=== PATIENT | female | born 1985 | race Caucasian/White ===

== ENCOUNTER 2022-08-20 00:04 | Day surgery (SDC) | payer OTHER, SELFPAY ==
[2022-08-16 08:22] VITALS: BMI 21.8
--- NOTE | 2022-08-16 08:36 | PC.NURSE ---
Report to the Outpatient Waiting Room, entrance under the green pavilion located off [facility], at time 0730 on date 08/20/22. OR Time: 0930. Time changes happen often and if your time is changed the preop area will call you the afternoon before. - You and your visitor will be asked to self-screen and do not enter if you have any COVID symptoms. - Only one visitor and NO children visitors are allowed at this time. - The patient visitor is requested to leave or wait in car when not with patient due to restrictions. - A mask is required within the hospital. Patients may have clear liquids (water, carbonated beverages, clear teas, apple juice) until 3 hours prior to surgery with a maximum of 20 ounces. - No food from midnight until time of surgery Take the following medications with a SIP of water the morning of surgery: N/A Medications to discontinue per physician: VITAMINS Date to take last dose: 08/16/22 Please no make-up, nail armenian, hairspray, perfume, deodorant, or body powder the day of surgery. No jewelry (including any body piercings) or valuables the day of surgery, leave them at home. Please take a shower or bath the night before, or the morning of, surgery with an antibacterial soap. Wear comfortable, loose fitting clothing. - Jewelry must be removed prior to entering the operating room. Rings and piercings that are not removed may be cut off. - The hospital will not accept responsibility for valuables. - Please leave all valuables, including medications, at home the day of surgery. If you are going home after surgery, a licensed meals on wheels driver must drive you home. - NO public transportation without another adult. - We recommend that an adult stay with you for 24 hours following discharge. - We also recommend that you do not drive, make important decision, drink alcoholic beverages, or take any drugs that were not prescribed by your health care provider for at least 24 hours after your discharge time. Follow any additional instructions given to you from your surgeon. If you or anyone in your household have experienced Covid symptoms in the past week, please notify your surgeon or the nurse liaison at the phone number below for possible testing. Telephone instructions given to PT - JANAK BARRAZA and asked if any additional questions and then verbalized understanding. Patient advised to call surgeon office or pre surgery nurse liaison [phone] if any additional questions.
[2022-08-20] VITALS (8 sets, daily range): BP systolic 109–122; BP diastolic 63–76; PULSE 55–96; RESP 12–22; TEMP 36.2–36.7; O2SAT 98–100
[2022-08-20] MEDS: LACTATED RINGERS 1,000 ML 30 ML IV CONT ×2 (06:50→10:40)
--- NOTE | 2022-08-20 07:37 | WPDHPUPDATE1 ---
History and Physical Update Update Date/Time: 08/20/22 07:38 History and Physical has been reviewed, including an updated exam of the patient. There are NO changes in the patient's condition. Risks, benefits, and alternatives have been discussed and questions answered. Patient agrees to proceed with procedure.
--- NOTE | 2022-08-20 07:38 | PM.HPGS ---
History of Present Illness History of Present Illness Consent: Risks, benefits, and alternatives have been discussed and questions answered. Patient agrees to proceed with procedure. Chief complaint: Vol Sterilization Narrative: Ruchi Michelle is a 37 year old female who has completed her childbearing and requests permanent sterilization. Risks of procedure including infection, bleeding, injury to internal organs, and tubal failure with increased ectopic were reviewed. In addition the permanent irreversible nature of tubal ligation was reviewed. Patient voices understanding and agrees to proceed PMFSH Past Medical History Medical History (Updated 08/20/22 @ 07:40 by Nolvia Aldrich MD) Anxiety and depression (normal spontaneous vaginal delivery) Social History Social History (Updated 03/29/21 @ 14:13 by Norma Byrd CMA) Smoking packs per day: 0.75 Smoking cigarettes per day: 15.0 Years smoked: 21 Smoking pack-years: 15.75 Smoking status: Current every day smoker Tobacco type: cigarettes Alcohol intake: current Drinks per week: 20 Alcohol use details: BEER Substance use: current Substance use type: marijuana Living arrangements: with family Spiritual care concerns: No Meds Home Medications and Allergies Home Medications Medication Instructions Recorded Confirmed Type cholecalciferol (vitamin D3) 50 50 mcg PO HS 08/16/22 08/16/22 History mcg (2,000 unit) tablet (Vitamin D3) fluoxetine 10 mg capsule 10 mg PO HS 08/16/22 08/16/22 History fluoxetine 20 mg capsule 20 mg PO HS 08/16/22 08/16/22 History vitamin B complex 1 tablet PO HS 08/16/22 08/16/22 History Allergies Allergy/AdvReac Type Severity Reaction Status Date / Time No Known Allergies Allergy Unverified 08/16/22 08:20 Exam Const: General: healthy appearing and alert Orientation/consciousness: patient oriented x3 Resp: Effort & Inspection: normal respiratory effort GI: GI Palp: Yes Soft to palpation, No Tenderness to palpation present (GI) and No Palpable mass present : External Female Exam: normal external appearance Speculum Exam - Vagina: normal appearance of the vagina and normal vaginal discharge Speculum Exam - Cervix: normal appearance of the cervix Bimanual exam- vagina & uterus: uterine size normal and consistency normal Bimanual Exam- Adnexa, other: normal adnexae and No adnexal tenderness Neuro: General: patient oriented x3 Assessment and Plan Assessment and plan (1) Encounter for sterilization: Code(s): Z30.2 - Encounter for sterilization Status: Acute Assessment and Plan: Plan to proceed with laparoscopic bilateral tubal ligation with Falope rings
[2022-08-20] MEDS: ACETAMINOPHEN 500 MG TABLET 1000 MG PO (08:10)
[2022-08-20] MEDS: KETOROLAC 15 MG/ML VIAL (*BKC) IV PUSH (08:10)
--- NOTE | 2022-08-20 08:25 | P.PNAN_ITS ---
Anes - Initial Pre Proc Eval Procedure: Operation Date: 08/20/22 09:30 Proposed Procedures p Laparoscopic Bilateral Tubal Ligation with Fallopian Rings - Nolvia Aldrich MD Date/Time: 08/20/22 08:25 Surgeon: Nolvia Aldrich MD Pre Op Diagnosis: Vol Sterilization Patient Data Age: 37 Gender: F Height: 1.64 m Weight: 58.8 kg Last Vital Signs Temp 36.7 C 08/20/22 07:52 Pulse 72 08/20/22 07:52 Resp 16 08/20/22 07:52 BP 109/72 08/20/22 07:52 Pulse Ox 100 08/20/22 07:52 O2 Del Method Room Air 08/20/22 07:52 Allergies Allergy/AdvReac Type Severity Reaction Status Date / Time No Known Allergies Allergy Verified 08/20/22 07:45 Home Medications Medication Instructions Recorded Confirmed Type cholecalciferol (vitamin D3) 50 50 mcg PO HS 08/16/22 08/20/22 History mcg (2,000 unit) tablet (Vitamin D3) fluoxetine 10 mg capsule 10 mg PO HS 08/16/22 08/20/22 History fluoxetine 20 mg capsule 20 mg PO HS 08/16/22 08/20/22 History vitamin B complex 1 tablet PO HS 08/16/22 08/20/22 History Patient hx anesthesia problems: none Family hx anesthesia problems: none Results Review: All pre-operative results and documents have been reviewed as part of the pre- operative evaluation. [facility] Past Medical History Medical History Anxiety and depression Social History Social History Smoking packs per day: 0.75 Smoking cigarettes per day: 15.0 Years smoked: 21 Smoking pack-years: 15.75 Smoking status: Current every day smoker Tobacco type: cigarettes Alcohol intake: current Drinks per week: 20 Alcohol use details: BEER Substance use: current Substance use type: marijuana Living arrangements: with family Spiritual care concerns: No Anes - Eval Final PreProcedure Day of Procedure 08/20/22 08:25 Patient weight: normal Heart: regular rate and rhythm Lungs: decreased breath sounds Airway: Mallampati scale class II Neurological: alert and oriented Last oral intake: >/= 8 hours ASA classification: III Emergent: no Anesthetic plan: proceed Anesthesia type and monitoring: general ETT and standard monitoring Results Review: All pre-operative results and documents have been reviewed as part of the pre- operative evaluation. Informed Consent: The patient's anesthetic plan and its attendant risks and benefits were discussed with the patient/family/POA. Questions were solicited and answers provided to the satisfaction of the patient/family/POA.
[2022-08-20] MEDS: SCOPOLAMINE 1.5 MG PATCH TRANSDERM (08:40)
--- NOTE | 2022-08-20 10:31 | P.OP_ITS ---
Procedure Note - Detailed Date of Procedure 08/20/22 Pre-op Diagnosis Requests Sterilization Post-op Diagnosis Same Procedure Performed Laparoscopic bilateral tubal ligation Surgeon Nolvia Aldrich MD Anesthesia General Findings Mild bilateral hydrosalpinx. Small cyst on the left ovary. Normal-appearing r ight ovary and uterus. Description of Procedure The patient is taken to the operating room and placed under anesthesia in the dorsal lithotomy position. She was prepped and draped in usual sterile fashion. Bladder was drained with a red rubber catheter. Daniel speculum was placed in the vagina and the cervix grasped on the anterior lip with a tenaculum. The uterus is sounded to 8cm. The JIM manipulator was placed and all other instruments removed from the vagina. Attention is turned to the abdomen where a vertical skin incision was made with a scalpel. The abdomen is tented and the Veress needle placed. Opening patient pressure was 4mmHg. Water drop test normal. Pneumoperitoneum was obtained to a patient pressure of 15. The patient was placed in Trendelenburg and a horizontal skin incision was made 2cm above the symphysis pubis in the midline. The 8mm trocars placed under direct visualization. The blunt probe was used to bring the tubes into view. They were noted to be mildly hydrosalpinx. The right tube was grasped at the thinnest portion and a ring is applied without difficulty. A good loop of tube was within the ring. The patient became bradycardic and the pneumoperitoneum was reduced and patient taken out of Trendelenburg. Medications were given per Anesthesia and the bradycardia resolved. Pneumoperitoneum was again obtained and the patient placed in mild Trendelenburg. The left tube is grasped and as the ring is being applied the tube transected. The cautery is opened and using the Kleppinger the tube was cauterized in 4 separate sections. Two sections were above the split and 2 were below. Pneumoperitoneum was reduced and the instruments removed. Skin incisions were closed using 4-0 nylon in an interrupted fashion. Vaginal instruments are removed. Patient is awakened from anesthesia and taken to recovery in stable condition. Sponge, needle, and instrument counts are correct per the OR staff. Estimated Blood Loss 5 Drains No Packing No Pathology None sent Complications No immediate complications Condition Stable Disposition PACU
[2022-08-20] MEDS: fentaNYL CITRATE INJ (*CRX) 100 MCG/2 ML VIAL 25 MCG IV PUSH ×2 (11:09→11:15)
[2022-08-20] MEDS: oxyCODONE HCL (*CRX) 5 MG TAB IR PO (12:04)
== END 2022-08-20 12:52 | disposition home or self-care (01) ==
PROVIDERS: PCP Family Medicine; Visit Provider Obstetrics & Gynecology Gynecology
PROC: (CPT 58671; principal; 2022-08-20 09:30)
DX: Z30.2 Encounter for sterilization (principal); N70.11 Chronic salpingitis; N83.202 Unspecified ovarian cyst, left side; F41.8 Other specified anxiety disorders; F17.210 Nicotine dependence, cigarettes, uncomplicated; F12.90 Cannabis use, unspecified, uncomplicated
CPT/HCPCS: 58671; A4264; A9270; J0330; J0461; J1100; J1885; J2250; J2405; J2590; J2704; J3010; J7120

== ENCOUNTER 2024-01-22 12:29 | Emergency (ER) | payer OTHER, SELFPAY ==
[2024-01-22 12:37] VITALS: BP 107/74; PULSE 86; RESP 16; TEMP 36.9; O2SAT 100
--- NOTE | 2024-01-22 13:00 | ED.EXTPRO ---
HPI - Extremity Problem General Chief complaint: Extremity Problem,Nontraumatic Stated complaint: Bruised Ankle Time Seen by Provider: 01/22/24 13:00 Source: patient Mode of arrival: ambulatory Limitations: no limitations History of Present Illness HPI Narrative: 39 yo F presents with redness, swelling and pain to medial aspect of L ankle for 2 days. Getting progressively worse. Afebrile. Hit left ankle while moving to new home. Ambulatory with slight limp. All systems reviewed and negative except as noted above. Related Data Home Medications Medication Instructions Recorded Confirmed cholecalciferol (vitamin D3) 50 50 mcg PO HS 08/16/22 08/20/22 mcg (2,000 unit) tablet (Vitamin D3) fluoxetine 10 mg capsule 10 mg PO HS 08/16/22 08/20/22 fluoxetine 20 mg capsule 20 mg PO HS 08/16/22 08/20/22 vitamin B complex 1 tablet PO HS 08/16/22 08/20/22 Allergies Allergy/AdvReac Type Severity Reaction Status Date / Time No Known Allergies Allergy Verified 08/20/22 07:45 Review of Systems Review of Systems: CONSTITUTIONAL: Denies fever, chills, or sweats. EYES: Denies visual changes, redness, or discharge. ENT: Denies rhinorrhea, congestion, sore throat, or otalgia. CARDIOVASCULAR: Denies chest pain, palpitations, or edema. RESPIRATORY: Denies cough or dyspnea. GASTROINTESTINAL: Denies abdominal pain, nausea, vomiting, or diarrhea. GENITOURINARY: Denies dysuria or hematuria. SKIN: Denies rash or itching. Reports redness swelling and tenderness to left ankle. MUSCULOSKELETAL: Denies back pain, joint pain, or myalgia. NEUROLOGIC: Denies headache, numbness, or weakness. PSYCHIATRIC: Denies anxiety or depression. All other systems reviewed are negative, except as documented in HPI. [facility] Past Medical History Medical History Anxiety and depression Social History Social History Smoking packs per day: 0.75 Smoking cigarettes per day: 15.0 Years smoked: 21 Smoking pack-years: 15.75 Smoking status: Current every day smoker Tobacco type: cigarettes Alcohol intake: current Drinks per week: 20 Alcohol use details: BEER Substance use: current Substance use type: marijuana Living arrangements: with family Spiritual care concerns: No Exam Narrative: At time of signature, agree with nursing past medical, surgical, social and family history. There is no relevant family history pertinent to the presenting complaint. Const: Other: GENERAL: This is a well-nourished, well-developed patient, in no apparent distress. HEAD: normocephalic, atraumatic. EYES: PERRL. Sclera clear/white. Vision is grossly intact. EARS: External ears normal NOSE: External nose normal NECK: Neck supple, non-tender without lymphadenopathy, masses or thyromegaly. CARDIOVASCULAR: Regular rate and rhythm without murmurs, gallops, or rubs. RESPIRATORY: Clear to auscultation. Breath sounds equal bilaterally. No wheezes, rales, or rhonchi. SKIN: warm, Dry, intact with no suspicious lesions or rash, good texture and turgor. Erythema to medial aspect of left ankle approximately 6 x 3 cm. Warm and tender on palpation. No fluctuance. NEURO: awake, alert, and oriented to person, place and time. There were no obvious focal neurologic abnormalities. EXTREMITIES: No joint tenderness, effusion, or edema noted. Course Course Level of Care: Express Care Visit Vital Signs Vital signs: Vital Signs Temperature 36.9 C 01/22/24 12:37 Pulse Rate 86 01/22/24 12:37 Respiratory Rate 16 01/22/24 12:37 Blood Pressure 107/74 01/22/24 12:37 Pulse Oximetry 100 01/22/24 12:37 Temperature 36.9 C 01/22/24 12:37 Pulse Rate 86 01/22/24 12:37 Respiratory Rate 16 01/22/24 12:37 Blood Pressure 107/74 01/22/24 12:37 Pulse Oximetry 100 01/22/24 12:37 Reviewed MDM - Extremity (N
== END 2024-01-22 13:12 | disposition home or self-care (01) ==
PROVIDERS: Emergency Provider Nurse Practitioner Family; PCP Family Medicine
DX: L03.116 Cellulitis of left lower limb (principal); F17.210 Nicotine dependence, cigarettes, uncomplicated; F12.90 Cannabis use, unspecified, uncomplicated; F41.9 Anxiety disorder, unspecified; F32.A Depression, unspecified
CPT/HCPCS: 99213; G0463

== ENCOUNTER 2024-02-09 19:50 | Emergency (ER) | payer OTHER, SELFPAY ==
[2024-02-09 19:58] VITALS: BP 112/70; PULSE 104; RESP 18; TEMP 36.9; O2SAT 100
--- NOTE | 2024-02-09 20:23 | ED.WOUNDLAC ---
HPI - Wound/Laceration General Chief Complaint: Wound/Laceration Stated Complaint: Left Foot Wound Time Seen by Provider: 02/09/24 20:07 Source: patient, RN notes reviewed and old records reviewed Mode of arrival: ambulatory Limitations: no limitations History of Present Illness HPI narrative: Patient presents today complaining of left foot and ankle swelling and redness. She was seen at [facility] on 01/22/2024, diagnosed with cellulitis of her left leg and prescribed Keflex. She finished the antibiotic and states her symptoms had improved by 85%. Reports that symptoms worsened again yesterday morning to include intermittent pain, redness, swelling. She reports intermittent tingling in her feet and toes for the past couple of years, so this is not new. She currently rates her pain 7/10 when it is at its worst, and has been taking ibuprofen with some relief. She was supposed to follow-up with her PCP last week, but missed her appointment. She has a new appointment set up in 2 days. Related Data Home Medications Medication Instructions Recorded Confirmed cholecalciferol (vitamin D3) 50 50 mcg PO HS 08/16/22 08/20/22 mcg (2,000 unit) tablet (Vitamin D3) fluoxetine 10 mg capsule 10 mg PO HS 08/16/22 08/20/22 fluoxetine 20 mg capsule 20 mg PO HS 08/16/22 08/20/22 vitamin B complex 1 tablet PO HS 08/16/22 08/20/22 Allergies Allergy/AdvReac Type Severity Reaction Status Date / Time No Known Allergies Allergy Verified 02/09/24 20:02 Review of Systems Review of Systems: CONSTITUTIONAL: Denies body aches, fever, chills, or sweats. EYES: Denies visual changes, redness, or discharge. ENT: Denies rhinorrhea, congestion, sore throat, or otalgia. CARDIOVASCULAR: Denies chest pain, palpitations, or edema. RESPIRATORY: Denies cough or dyspnea. GASTROINTESTINAL: Denies abdominal pain, nausea, vomiting, or diarrhea. GENITOURINARY: Denies dysuria or hematuria. SKIN: Denies rash, itching, or wounds. MUSCULOSKELETAL: + left ankle and foot swelling, redness NEUROLOGIC: Denies headache, numbness, tingling, or weakness. PSYCH: Denies depression or anxiety. [facility] Past Medical History Medical History Anxiety and depression Social History Social History Smoking packs per day: 0.75 Smoking cigarettes per day: 15.0 Years smoked: 21 Smoking pack-years: 15.75 Smoking status: Current every day smoker Tobacco type: cigarettes Alcohol intake: current Drinks per week: 20 Alcohol use details: BEER Substance use: current Substance use type: marijuana Living arrangements: with family Spiritual care concerns: No Comments At time of signature, I have reviewed and agree with nursing past medical, surgical, social and family history unless otherwise noted. Please see nursing chart for further information. There is no relevant family history pertinent to the presenting complaint Exam Narrative: GENERAL: Well-appearing, well-nourished, and in no acute distress. HEAD: Normocephalic, atraumatic. EYES: EOMI. No redness or drainage. Conjunctivae normal. ENT: Mucous membranes pink and moist. NECK: Normal AROM. CHEST: No respiratory distress. EXTREMITIES: Left le+ nonpitting edema to the left foot and ankle accompanied by mild erythema of the foot and ankle. Tenderness to palpation chest proximal to the ankle. No tenderness to the calf. No erythema or swelling of the calf. Negative Homans. Distal sensation intact in all 5 toes. Capillary refill normal. Pedal pulse is strong. SKIN: Warm, dry, no rash. Capillary refill normal. Normal skin turgor. NEURO: No focal deficits. Alert and oriented x3. Gait steady. PSYCH: Normal affect. No signs of depression or anxiety. Course Course Level of Care: Express Care Visit Vital Signs Vital signs: Vital Signs Temperature 98
== END 2024-02-09 20:30 | disposition home or self-care (01) ==
PROVIDERS: Emergency Provider Nurse Practitioner; PCP Family Medicine
DX: L03.116 Cellulitis of left lower limb (principal); F17.210 Nicotine dependence, cigarettes, uncomplicated; F41.9 Anxiety disorder, unspecified; F32.A Depression, unspecified
CPT/HCPCS: 99213; G0463

== ENCOUNTER 2024-02-11 15:35 | Outpatient (CLI) | payer OTHER, SELFPAY ==
--- NOTE | ~2024-02-11 | US_ITS ---
US venous doppler [facility] DATE: 02/11/2024 16:12 INDICATION: Swelling of the left lower extremity TECHNIQUE: Real-time and color flow imaging and Doppler analysis of the veins of the left lower extre mity COMPARISON: None FINDINGS: The left greater saphenous vein is patent. There is spontaneous and phasic flow and normal augmentation and color flow signal and normal compression of the deep veins of the left lower extremi ty. IMPRESSION: No evidence of deep venous thrombosis of left leg Reviewed, dictated and finalized at [facility]. Reviewed, dictated and finalized at location [facility].
== END 2024-02-11 15:36 | disposition home or self-care (01) ==
LOC: ANHIMG 15:36
PROVIDERS: PCP Family Medicine; Visit Provider Family Medicine
DX: M79.89 Other specified soft tissue disorders (principal)
CPT/HCPCS: 93971

== ENCOUNTER 2024-03-02 13:08 | Outpatient (CLI) | payer OTHER, SELFPAY ==
--- NOTE | ~2024-03-02 | XR_ITS ---
Bilateral Hands Technique: Bilateral PA, oblique, and lateral views, and ball-catcher's view were obtained. Clinical History: Pain Findings: No acute fracture or dislocation is seen. Osseous alignment is anatomic. Joint spaces are p reserved. Soft tissues are unremarkable. Impression: Unremarkable bilateral hand radiographs. Reviewed, dictated and finalized at location . Impression: Unremarkable bilateral hand radiographs.
--- NOTE | ~2024-03-02 | XR_ITS ---
Left ankle Technique: AP, oblique, and lateral views were obtained. Clinical History: Pain Findings: No acute fracture or dislocation is seen. Osseous alignment is anatomic. Ankle mortise and other visualized joint spaces are preserved. Soft tissues are otherwise unremarkable. Impression: Unremarkable left ankle. Reviewed, dictated and finalized at location . Impression: Unremarkable left ankle.
== END 2024-03-02 13:09 | disposition home or self-care (01) ==
LOC: ANHIMG 13:09
PROVIDERS: PCP Family Medicine; Visit Provider Family Medicine
DX: M25.572 Pain in left ankle and joints of left foot (principal); M79.642 Pain in left hand; M79.641 Pain in right hand
CPT/HCPCS: 73130; 73610

== ENCOUNTER 2024-06-13 19:57 | Emergency (ER) | payer OTHER, SELFPAY ==
--- NOTE | 2024-06-13 20:08 | ED.FEMALEGU ---
HPI - Female Genitourinary General Chief complaint: Urogenital-Female Stated complaint: UTI Time Seen by Provider: 06/13/24 20:08 Source: patient, RN notes reviewed and old records reviewed Mode of arrival: ambulatory Limitations: no limitations History of Present Illness HPI Narrative: 39-year-old female presents to the [facility] with concerns for UTI. Patient reports having blood, urgency, burning and frequency with urination. Patient states that it started couple of days ago. Denies abdominal pain, did feel nauseous on Saturday, 3 days ago. No vomiting. Denies fevers. No CVA tenderness. Denies abdominal pain. Patient states that she believes that her significant other my of cheated on her. 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 Related Data Home Medications Medication Instructions Recorded Confirmed fluoxetine 10 mg capsule 10 mg PO HS 08/16/22 02/26/24 fluoxetine 20 mg capsule 20 mg PO HS 08/16/22 02/26/24 cholecalciferol (vitamin D3) 50 50 mcg PO HS 02/11/24 02/26/24 mcg (2,000 unit) tablet (Vitamin D3) Allergies Allergy/AdvReac Type Severity Reaction Status Date / Time No Known Allergies Allergy Verified 02/26/24 14:09 Review of Systems Review of Systems: All systems reviewed & are unremarkable except as noted in HPI and below Constitutional: Constitutional: Reports no additional constitutional complaints Eyes: Eyes: Reports no additional eye complaints ENT: Reports system reviewed and no additional complaints, except as documented Cardiovascular: Cardiovascular: Reports no additional cardiovascular complaints, Denies chest pain and Denies dyspnea Respiratory: Respiratory: Reports no additional respiratory complaints, Denies chest congestion, Denies cough and Denies dyspnea Gastrointestinal: Gastrointestinal: Reports no additional gastrointestinal complaints, Denies abdominal pain, Denies nausea and Denies vomiting Genitourinary: Genitourinary: Reports as per HPI Musculoskeletal: Musculoskeletal: Reports no additional musculoskeletal complaints Integumentary/Breasts: Skin/Breast: Reports system reviewed and no additional complaints, except as docu Neurologic: Reports system reviewed and no additional complaints, except as documented Psychiatric: Psychiatric: Reports no additional psychiatric complaints Allergic/Immunologic: Allergic/Immunologic: Reports no additional allergic/immunologic complaints PMFSH Past Medical History Medical History Anxiety and depression Social History Social History Smoking packs per day: 0.75 Smoking cigarettes per day: 15.0 Years smoked: 21 Smoking pack-years: 15.75 Smoking status: Current every day smoker Tobacco type: e-cigarettes/vaping Smoking end date: 11/07/22 Alcohol intake: current Alcohol use details: occasionally Substance use: former Substance use type: marijuana Do You Feel Safe in your Home?: Yes Living arrangements: with family Spiritual care concerns: No Comments At the time of my signature, I reviewed and agree with the nursing past medical, surgical, social, and family history. There is no relevant family history pertinent to the patient complaint. Exam Const: General: cooperative, healthy appearing, comfortable, no acute distress, well developed, alert and well nourished Nutritional Appearance: well nourished Orientation/consciousness: patient oriented x3 Limitations: no limitations HENMT: Head: normal to inspection Ears: hearing grossly normal bilaterally and external ears normal Face/Nose/Sinus: Normal external nose present, Normal nares present, Normal nasal mucous membranes and turbinates present, normal facial exam and face symmetric Face and sinus: normal facial exam and face symmetric Eyes: General: appearance norm
[2024-06-13 20:13] VITALS: BP 124/62; PULSE 99; RESP 16; TEMP 37.1; O2SAT 100
[2024-06-13 20:18] LABS: EDUAAPPEAR Cloudy; EDUABILI Negative; EDUABLOOD 2+; EDUACOLOR1 Dark; EDUAGLUCOSE Negative; EDUAKETONE Negative; EDUALEUKO 1+; EDUANITRATE Negative; EDUAPH 6.5; EDUAPROTEIN 1+; EDUASPGRAVITY 1.025; EDUAUROBILI 0.2
== END 2024-06-13 20:25 | disposition home or self-care (01) ==
PROVIDERS: Emergency Provider Nurse Practitioner; PCP Family Medicine
DX: N39.0 Urinary tract infection, site not specified (principal); F17.290 Nicotine dependence, other tobacco product, uncomplicated; F41.9 Anxiety disorder, unspecified; F32.A Depression, unspecified
CPT/HCPCS: 81003; 87086; 87088; 99213; G0463